=== PATIENT | male | born 1940 | race Caucasian/White ===

== ENCOUNTER 2017-11-08 10:56 | Emergency (ER) | payer OTHER, BC ==
[~2017-11-08] VITALS: Ht 172.7 cm; Wt 86.2 kg
[2017-11-08 11:04] VITALS: Ht 172.7 cm; Wt 86.2 kg
[2017-11-08 12:23] LABS: BASOPHIL % 0.9 % (0-2); PLATELET COUNT 168 x10^3mcL (130-400)
[2017-11-08 12:29] LABS: RED CELL DISTRIBUTION WIDTH 16.7 % (11.5-14.5)
[2017-11-08 12:37] LABS: CALCIUM 9.1 mg/dL (8.5-10.1); CARBON DIOXIDE 26.5 mmol/L (21-32); CHLORIDE SERUM 103 mmol/L (98-107); GLUCOSE SERUM 102 mg/dL (74-106); POTASSIUM SERUM 4.3 mmol/L (3.5-5.1); SODIUM SERUM 138 mmol/L (136-145)
[2017-11-08 12:41] LABS: ALBUMIN 3.8 g/dL (3.4-5.0); ALKALINE PHOSPHATASE 74 U/L (46-116); ALT/SGPT 27 U/L (16-63); AST/SGOT 23 U/L (15-37); BILIRUBIN TOTAL 1.7 mg/dL (0.20-1.00); CHOLESTEROL 227 mg/dL (<200); HDL CHOLESTEROL 43 mg/dL (40-60); TOTAL PROTEIN, SERUM 7.6 g/dL (6.4-8.2)
[2017-11-08 13:46] LABS: microscopic required? NO
[2017-11-08 13:54] LABS: urine erythrocyte NEGATIVE (NEGATIVE)
[2017-11-08 15:30] VITALS: BP 110/62
== END 2017-11-08 15:30 | disposition home or self-care (01) ==
LOC: ED 10:56
PROVIDERS: Emergency Medicine
DX: J06.9 Acute upper respiratory infection, unspecified (principal); E03.9 Hypothyroidism, unspecified; I48.91 Unspecified atrial fibrillation
CPT/HCPCS: 83880; 87804; J1885; J2405; J3010; J7030